=== PATIENT | female | born 1975 | race Caucasian/White ===

== ENCOUNTER 2018-03-07 01:33 | Emergency (ER) | payer OTHER ==
[2018-03-07] MEDS ORDERED: IBUPROFEN 400 MG TABLET (FP) PO ONE (01:35)
[2018-03-07] MEDS ORDERED: ALBUTEROL SO4 2.5/IPRATROPIUM 0.5 INH SOL 3 ML VIAL.NEB. NEB ONE (01:35)
--- NOTE | 2018-03-07 01:35 | PDOC ---
History of Present Illness - General Chief Complaint: Cold Symptoms Stated Complaint: COUGH,CONGESTION Time Seen by Provider: 03/07/18 01:35 - History of Present Illness Initial Comments: 03/07/18 02:19 Chief complaint cough congestion History of present illness: 43 years old no past medical history multiple sick family members at home presents to the ED with 4 day history of nasal congestion cough no sore throat Cough is been keeping patient up at night is nonproductive she has had fever chills body aches associated with this Tmax 102 Both her son also sick with similar illnesses, but she does not have the same sore throat that they did Symptoms are moderate persistent constant with no exacerbating or alleviating factors. Past History - Past Medical History Allergies/Adverse Reactions: Allergies Allergy/AdvReac Type Severity Reaction Status Date / Time No Known Allergies Allergy Verified 03/07/18 01:49 Home Medications: Ambulatory Orders Albuterol Sulfate Inhaler - [Ventolin Hfa Inhaler -] 1 - 2 inh PO Q4H #1 inhaler 03/07/18 Levothyroxine [Synthroid -] 100 mcg PO DAILY 03/07/18 Review of Systems - Review of Systems Comments:: 03/07/18 02:21 ROS: A complete review of 10 out of 10 review of systems is taken and is negative apart from what is previously mentioned below and in the HPI. *Physical Exam - Physical Exam Comments: 03/07/18 02:21\ Vitals: Triage Vital signs reviewed General Appearance: no acute distress, well nourished well developed, Head: Atraumatic, Throat: Posterior oropharynx without erythema, mucous membranes moist, Neck: Supple;No Nucal rigidity Chest Wall: Nontender Cardiac: Regular rate and rhythym, no murmurs, no rubs, no gallops, Lungs: Clear to auscultation bilateral, good air movement bilaterally, bronchospastic cough Abdomen: Soft, non distended, normal bowel sounds, non tender to palpation Extremities: Full range of motion to all extremities, no cyanosis, clubbing, or edema Skin: Warm and dry, no rashes or lesions, no rash, no petechiae Psych: normal mood, normal affect Medical Decision Making - Medical Decision Making 03/07/18 02:19 History and examination consistent with influenza. She is 43 with no past medical history no high-risk conditions is well out of the 48 hours no for treatment with Tamiflu. Patient with symptoms since Wednesday now day for fever Tmax 102 associated with nasal congestion sore throat chills body aches cough is nonproductive History examination not consistent with pneumonia lungs are clear examination the patient is concerned about a cough requesting x-ray States she cannot be . Status post 3 DuoNeb nebs patient feels a little bit better but still coughing we'll obtain chest x-ray try Robitussin and Afrin observe and reassess. Status post Afrin duo nebs and Robitussin patient's chest congestion are slightly better chest x-ray demonstrates no acute infiltrate Interpreted by me chest x-ray consistent with viral picture History and examination consistent with viral bronchitis likely secondary to pneumonia patient is not within the window for treatment We'll discharge home with Ventolin MDI Afrin and Robitussin she will return to the ED for any severe worsening symptoms or for any concerns she'll otherwise follow-up with her doctor this week. Findings, need for follow-up and strict return instructions discussed with patient. *DC/Admit/Observation/Transfer Diagnosis at time of Disposition: Viral bronchitis - Discharge Dispostion Disposition: HOME Condition at time of disposition: Stable Decision to Admit order: No - Prescriptions Prescriptions: Albuterol Sulfate Inhaler - [Ventolin Hfa Inhaler -] 1 - 2 inh PO Q4H #1 inhaler - Referrals - Patient Instructions Printed Discharge Instructions: DI for Acute Bronchitis, DI for Viral Upper Respiratory Infection -- Adult Additional Instructions: Alternate Tylenol Motrin as needed for fever. Take Ventolin MDI as prescribed. Take Afrin as directed on package. Take [id number] Robitussin as directed on package. Return to the emergency department for any severe worsening symptoms or for any concerns otherwise follow-up with your primary care provider this week. - Post Discharge Activity Forms/Work/School Notes: Back to Work
[2018-03-07 01:54] VITALS: BP 116/75; PULSE 73; TEMP 98.1; BMI 23.3
[2018-03-07] MEDS ORDERED: guaiFENesin/D-METHORPHAN HB 10 ML UNIT-DOSE CUPS PO ONE (02:16)
[2018-03-07] MEDS ORDERED: OXYMETAZOLINE 0.05% NASAL SOLUTION 15 ML BOTTLE NS ONE ×2 (02:16→02:21)
[2018-03-07] MEDS ORDERED: guaiFENesin/D-METHORPHAN HB 10 ML UNIT-DOSE CUPS ONE (02:22)
== END 2018-03-07 03:15 | disposition home or self-care (01) ==
LOC: FER 01:33
PROC: 3E0F7GC Introduction of Other Therapeutic Substance into Respiratory Tract, Via Natural or Artificial Opening (ICD-10-PCS; principal; 2018-03-07)
DX: J20.8 Acute bronchitis due to other specified organisms (principal); B97.89 Other viral agents as the cause of diseases classified elsewhere
CPT/HCPCS: 71045-TC-FY; 99282-25

== ENCOUNTER 2023-11-21 16:08 | Emergency (ER) | payer OTHER ==
[2023-11-21 16:52] VITALS: BP 119/76; PULSE 69; RESP 16; TEMP 97.9; BMI 23.3
== END 2023-11-21 20:16 | disposition home or self-care (01) ==
LOC: JER 16:08
DX: S00.83XA Contusion of other part of head, initial encounter (principal); W18.02XA Striking against glass with subsequent fall, initial encounter
CPT/HCPCS: 70450-TC; 84703; 99284-25